=== PATIENT | female | born 1950 | race African-American/Black ===

== ENCOUNTER 2019-04-22 22:14 | Inpatient (IN) | payer MEDICARE, OTHER ==
[~2019-04-22] VITALS: Ht 170.2 cm; Wt 99.6 kg
[2019-04-22] MEDS ORDERED: SODIUM CHLORIDE 0.9% 1,000 ML IV ONE (22:28)
[2019-04-22 23:25] LABS: CHLORIDE 88 mEq/L (98-107)
[2019-04-22 23:29] LABS: ETHANOL BLOOD < 10 mg/dL
[2019-04-22 23:34] LABS: HEMATOCRIT. 37.7 % (36.0-48.0); HEMOGLOBIN. 11.8 g/dL (12.0-16.0); MEAN CORPUSCULAR HEMOGLOBIN 25.3 pg (28.0-32.0); MEAN CORPUSCULAR VOLUME 80.7 fL (81.0-99.0); MEAN PLATELET VOLUME 11.5 fl (7.4-10.4); PLATELET 214 x1000/uL (130-400); RED BLOOD CELL COUNT 4.67 mill/uL (4.2-5.4)
[2019-04-22 23:35] LABS: BETA HYDROXYBUTYRATE 4.5 mMol/L (0.0-0.3)
[2019-04-22 23:37] LABS: T4 FREE 1.41 ng/dL (0.76-1.46)
[2019-04-22] MEDS ORDERED: FUROSEMIDE 100MG/10ML VIAL IV STA (23:38)
[2019-04-22] MEDS ORDERED: ALBUTEROL (0.083%) 2.5MG/3ML NEB HHN ONE (23:45)
[2019-04-22] MEDS ORDERED: SODIUM CHLORIDE 0.9% 1000ML BAG (SEPSIS BOLUS) IV ONE (23:45)
[2019-04-23] MEDS ORDERED: CALCIUM CHLORIDE 1GM/10ML SYR IV SCH
[2019-04-23] MEDS ORDERED: INSULIN REGULAR (HUMULIN R) 300UNITS/3ML IV SCH
[2019-04-23] MEDS ORDERED: SODIUM BICARBONATE 8.4% 1 MEQ/ML 50ML SYR IV SCH
[2019-04-23 00:01] LABS: CLARITY URINE CLEAR (CLEAR); COLOR URINE YELLOW (YELLOW); KETONES URINE 2+ (NEGATIVE); LEUKOCYTE ESTERASE URINE NEGATIVE (NEGATIVE); NITRITE URINE NEGATIVE (NEGATIVE); OCCULT BLOOD URINE TRACE (NEGATIVE); PROTEIN URINE 2+ (NEGATIVE); SPECIFIC GRAVITY URINE 1.023 (1.005-1.030); UROBILINOGEN URINE 0.2 E.U./dL (0.2-1.0)
[2019-04-23 00:14] LABS: *AMPHETAMINES SCREEN URINE NEGATIVE (NEGATIVE)
[2019-04-23 00:15] LABS: *BARBITURATES SCREEN URINE NEGATIVE (NEGATIVE); *BENZODIAZEPINES SCREEN URINE NEGATIVE (NEGATIVE); *COCAINE SCREEN URINE NEGATIVE (NEGATIVE); METHADONE URINE SCREEN NEGATIVE (NEGATIVE); OPIATES URINE SCREEN NEGATIVE (NEGATIVE)
[2019-04-23 00:16] LABS: CANNABINOID URINE SCREEN NEGATIVE (NEGATIVE); PHENCYCLIDINE URINE SCREEN NEGATIVE (NEGATIVE)
[2019-04-23 00:22] LABS: PLATELET ESTIMATE NORMAL
[2019-04-23] MEDS ORDERED: INSULIN REGULAR (DRIP) 100 UNITS in SODIUM CHLORIDE 0.9% 99 ML IV SCH ×4 (00:30)
[2019-04-23] MEDS ORDERED: ONDANSETRON HCL 4MG/2ML INJ IV ONE (01:15)
[2019-04-23 04:57] LABS: CHLORIDE 105 mEq/L (98-107)
[2019-04-23 05:03] LABS: PHOSPHORUS 2.8 mg/dL (2.5-4.9)
[2019-04-23] MEDS ORDERED: INSULIN LISPRO 100 UNITS/ML SUBCUT SCH (05:15)
[2019-04-23 05:23] LABS: BASOPHILS % 0.4 % (0.0-2.0); EOSINOPHILS % 0.5 % (0.0-5.0); HEMOGLOBIN. 10.2 g/dL (12.0-16.0); LYMPHOCYTES % 8.6 % (20.0-50.0); MEAN CORPUSCULAR HEMOGLOBIN 25.2 pg (28.0-32.0); MEAN CORPUSCULAR VOLUME 76.8 fL (81.0-99.0); MEAN PLATELET VOLUME 10.2 fl (7.4-10.4); MONOCYTES % 7.3 % (2.0-8.0); NEUTROPHILS % 83.2 % (40.0-76.0); PLATELET 187 x1000/uL (130-400); RED BLOOD CELL COUNT 4.04 mill/uL (4.2-5.4); RED CELL DISTRIBUTION WIDTH 13.8 % (11.6-14.6)
[2019-04-23] MEDS ORDERED: INSULIN GLARGINE UD 100 UNITS/ML SYR SUBCUT SCH (05:30)
[2019-04-23 08:30] VITALS: BP 158/79
[2019-04-23] MEDS ORDERED: CLONIDINE 0.1MG TABLET PO PRN (08:45)
[2019-04-23] MEDS ORDERED: DEXTROSE 50% WATER 50ML SYRINGE IV PRN ×2 (08:45)
[2019-04-23] MEDS ORDERED: OMEPRAZOLE 20MG CAPSULE EXTENDED RELEASE PO SCH (08:45)
[2019-04-23] MEDS ORDERED: ACETAMINOPHEN 325MG TABLET PO PRN (08:45)
[2019-04-23] MEDS: BLOOD SUGAR DIAGNOSTIC STRIP TEST SCH ×3 (08:56→17:18)
[2019-04-23] MEDS ORDERED: ENOXAPARIN 40MG/0.4ML SYR SUBCUT SCH (09:00)
[2019-04-23] MEDS ORDERED: AMLODIPINE 5MG TABLET PO SCH (09:00)
[2019-04-23] MEDS ORDERED: DOCUSATE SODIUM 250MG CAPSULE PO SCH (09:00)
[2019-04-23] MEDS ORDERED: LISINOPRIL 10MG TABLET PO SCH (09:00)
[2019-04-23] MEDS ORDERED: LINAGLIPTIN 5MG TABLET PO SCH (09:00)
[2019-04-23] MEDS ORDERED: GLIMEPIRIDE 2MG TABLET PO SCH (09:00)
[2019-04-23 12:01] VITALS: BP 165/77
[2019-04-23 12:06] LABS: BG BASE EXCESS 1.3 mmol/L (-2.0-2.0); BG CARBOXYHEMOGLOBIN 0.3 % (0.5-1.5); BG DEOXYHEMOGLOBIN 4.4 % (0.0-5.0); BG FRACTION INSPIRED OXYGEN 21; BG HCO3 ACT 26.6 mmol/L (22.0-26.0); BG METHEMOGLOBIN 0.1 % (0.0-1.5); BG OXYGEN SATURATION 95.6 % (92.0-98.5); BG OXYHEMOGLOBIN 95.2 % (94.0-97.0); BG PCO2 44.8 mmHg (35.0-45.0); BG PH 7.391 (7.350-7.450); BG PO2 81.9 mmHg (75.0-100.0); BG SAMPLE SITE RIGHT RADIAL; BG TOTAL HEMOGLOBIN 10.9 g/dL (12.0-18.0); BG VENT MODE ROOM AIR
[2019-04-23 12:07] LABS: BASOPHILS % 0.6 % (0.0-2.0); EOSINOPHILS % 0.2 % (0.0-5.0); HEMATOCRIT. 32.3 % (36.0-48.0); HEMOGLOBIN. 10.5 g/dL (12.0-16.0); LYMPHOCYTES % 16.3 % (20.0-50.0); MEAN CORPUSCULAR HEMOGLOBIN 25.1 pg (28.0-32.0); MEAN CORPUSCULAR VOLUME 77.3 fL (81.0-99.0); MONOCYTES % 8.9 % (2.0-8.0); PLATELET 188 x1000/uL (130-400); RED BLOOD CELL COUNT 4.18 mill/uL (4.2-5.4); RED CELL DISTRIBUTION WIDTH 14.1 % (11.6-14.6)
[2019-04-23] MEDS: SODIUM CHLORIDE 0.45% 1,000 ML IV SCH ×2 (12:07→17:15)
[2019-04-23 12:15] LABS: CHLORIDE 106 mEq/L (98-107)
[2019-04-23 12:21] LABS: LDL CHOLESTEROL 95 mg/dL (5-100)
[2019-04-23 12:24] LABS: HDL CHOLESTEROL 40 mg/dL (40-59)
[2019-04-23] MEDS: INSULIN LISPRO 100 UNITS/ML SUBCUT SCH ×2 (12:50→18:17)
[2019-04-23 16:43] VITALS: BP 152/74
[2019-04-23] MEDS ORDERED: METFORMIN HCL 500MG TABLET PO SCH (17:50)
[2019-04-23 18:59] VITALS: BP 152/74
[2019-04-23 20:08] VITALS: BP 144/74
[2019-04-23] MEDS ORDERED: ATORVASTATIN CALCIUM 10MG TABLET PO SCH (21:00)
== END 2019-04-23 20:10 | disposition short-term general hospital (02) | DRG 70 ==
LOC: ER 22:14 → EDBEDREQSVC 04-23 00:01 → 6WST 04-23 01:04 → EDBEDREQDT 04-23 01:09 → EDBEDREQTM 04-23 01:09 → EDBEDREQ 04-23 01:09 → CANRESERV 04-23 05:06 → ENRESERV 04-23 05:06 → EDBEDREQTM 04-23 05:29 → EDBEDREQSVC 04-23 05:29 → ENRESERV 04-23 07:14
PROVIDERS: ADMIT Internal Medicine Geriatric Medicine; ATTEND Internal Medicine Geriatric Medicine
DX: G93.41 Metabolic encephalopathy (principal); E11.10 Type 2 diabetes mellitus with ketoacidosis without coma; N17.0 Acute kidney failure with tubular necrosis; E87.1 Hypo-osmolality and hyponatremia; D64.9 Anemia, unspecified; E11.21 Type 2 diabetes mellitus with diabetic nephropathy; E66.01 Morbid (severe) obesity due to excess calories; E87.5 Hyperkalemia; I10 Essential (primary) hypertension; R19.5 Other fecal abnormalities; Z68.34 Body mass index [BMI] 34.0-34.9, adult; Z86.73 Personal history of transient ischemic attack (TIA), and cerebral infarction without residual deficits; Z79.4 Long term (current) use of insulin
CPT/HCPCS: 36415; 36600; 71045; 74018; 80061; 80305; 80320; 81003; 82010; 82140; 82375; 82805; 82962; 83036; 83605; 83735; 84100; 84439; 84443; 93005; 93970; 96374; 96375; 97162; 99291; J1650; J1815; J2405; J3490; J7030; J7050; G0480